=== PATIENT | female | born 1995 | race Caucasian/White ===

== ENCOUNTER 2016-10-14 12:26 | Emergency (ER) | payer SELFPAY ==
[~2016-10-14 12:26] MED LIST: ADVIL200 M2 PO; VISTARIL PO; ZANTAC150 MG PO
== END 2016-10-14 14:09 | disposition home or self-care (01) ==
LOC: SED 12:26
DX: L50.0 Allergic urticaria (principal); Z98.51 Tubal ligation status; Z98.890 Other specified postprocedural states
CPT/HCPCS: 96372; 99283; J2930

== ENCOUNTER 2017-01-04 19:10 | Emergency (ER) | payer SELFPAY | END 2017-01-04 21:04 | disposition home or self-care (01) | LOC: SED 19:10 | DX: K05.30 Chronic periodontitis, unspecified (principal) | CPT/HCPCS: 82947; 99283 ==

== ENCOUNTER 2017-01-09 15:06 | Emergency (ER) | payer OTHER ==
[2017-01-09] MEDS ORDERED: AUGMENTIN (15:24)
[2017-01-09] MEDS ORDERED: LEVAQUIN (15:24)
== END 2017-01-09 18:27 | disposition home or self-care (01) ==
LOC: SED 15:06
DX: T78.40XA Allergy, unspecified, initial encounter (principal); H92.01 Otalgia, right ear
CPT/HCPCS: 99282

== ENCOUNTER 2017-04-07 15:58 | Emergency (ER) | payer OTHER ==
--- NOTE | ~2017-04-07 | CR72 ---
[facility]. [facility] A Service of [facility] & [facility] RADIOLOGY TEXT RESULTS PATIENT: HAIDER ESCOBAR LOCATION: SED : [birth year] UNIT #: [id number] AGE: [address]: Chhaya Wallace MD SEX: F ORDER DR: [id number] [address] [address] [id number] MR#: [id number] Acc #: [id number] NAME: HAIDER ESCOBAR : 1995 SEX: F STUDY DATE/TIME: 04/07/2017 17:09 UNIT: SED ROOM: STUDY DESCRIPTION: CR Chest Single View Portable Attending Physician: Chhaya Wallace M.D. Ordering Physician: Chhaya Wallace M.D. Primary Care Physician: Primary Care Physician No MEDICAL IMAGING REPORT This report is preliminary unless electronic signature is present. EXAM Portable chest HISTORY Shaking, chest pain, shortness of air. FINDINGS A single AP portable view of the chest shows both lungs to be clear. The heart is normal in size. The mediastinal contour is normal. No significant bone abnormalities are seen. IMPRESSION Normal portable chest. Dictated by... Meek Chester M.D. THIS IS AN ELECTRONICALLY VERIFIED REPORT Meek Chester M.D. at 04/08/2017 7:37 PM ANIVAL/morro TD: 04/08/2017 15:29 JOB #: [id number] MEDICAL IMAGING REPORT Page 1 of 1
--- NOTE | ~2017-04-07 | EKG ---
PATIENT: HAIDER ESCOBAR UNIT #: [id number] Ventricular Rate: 102 BPM Atrial Rate: 102 BPM P-R Interval: 138 ms QRS Duration: 92 ms Q-T Interval: 356 ms QTC Calculation(Bezet): 463 ms P Elliott: 43 degrees Calculated R Elliott: 38 degrees Calculated T Elliott: 20 degrees Diagnosis Line: Sinus tachycardia Diagnosis Line: Otherwise normal ECG Diagnosis Line: When compared with ECG of 12-MAY-2016 10:17, Diagnosis Line: Vent. rate has increased BY 37 BPM Diagnosis Line: Confirmed by OSWALDO RYDER MD ([id number]) on Diagnosis Line: 04/11/2017 11:17:34 AM INTERPRETING MD: BRITNI ROCHA
[~2017-04-07 15:58] MED LIST changes: +AUGMENTIN; +LEVAQUIN
[2017-04-07 16:29] LABS: BASOPHIL# 0.1 X10e3 (0-0.3); BASOPHIL% 0.9 % (0-2.5); EOSINOPHIL# 0.2 X10e3 (0-0.7); EOSINOPHIL% 2.4 % (0.0-7.0); HEMATOCRIT 36.4 % (35.0-45.0); HEMOGLOBIN 12.2 gm/dL (12.0-16.0); LYMPHOCYTE# 2.5 X10e3 (1.0-3.5); LYMPHOCYTE% 28.4 % (17.0-45.0); MEAN CELL VOLUME 83.5 FL (83-96); MEAN CORPUSCULAR HEMOGLOBIN 27.9 PG (28-34); MEAN CORPUSCULAR HGB CONC 33.4 g/dL (30-36); MEAN PLATELET VOLUME 7.6 FL (6.5-11.5); MONOCYTE# 0.7 X10e3 (0-1.0); MONOCYTE% 8.3 % (3.0-12.0); NEUTROPHIL# 5.2 X10e3 (1.5-7.1); PLATELET COUNT 409 X10e3 (140-420); RED BLOOD COUNT 4.36 X10e (3.90-5.30); RED CELL DISTRIBUTION WIDTH 13.4 % (11.0-15.5); WHITE BLOOD COUNT 8.6 X10e3 (4.0-10.5)
[2017-04-07 16:34] LABS: DIFF IND NO
[2017-04-07 16:40] LABS: POC - CKMB 1.2 ng/mL (0.0-7.9); POC - MYOGLOBIN 37.5 ng/mL (0.0-169.0); POC - TROPONIN <0.05 ng/mL (<=0.05)
[2017-04-07 16:47] LABS: ALBUMIN SERUM 4.1 g/dL (3.5-5.0); ALKALINE PHOSPHATASE 71 U/L (32-92); ALT (SGPT) 22 U/L (10-40); AST (SGOT) 22 U/L (10-42); BILIRUBIN,TOTAL 0.2 mg/dL (0.2-2.0); BLOOD UREA NITROGEN 19 mg/dL (9-23); BUN/CREATININE RATIO 23.75; CALCIUM SERUM 8.6 mg/dL (8.4-10.2); CARBON DIOXIDE 24 mmol/L (22-31); CHLORIDE 108 mmol/L (100-111); CREATININE SERUM 0.8 mg/dL (0.6-1.4); GLUCOSE FASTING 113 mg/dL (70-110); MAGNESIUM 1.9 mg/dL (1.6-3.0); POTASSIUM 3.5 mmol/L (3.5-5.1); PROTEIN TOTAL SERUM 7.3 g/dL (6.0-8.3); SODIUM 135 mmol/L (135-145)
[2017-04-07 16:49] LABS: BILIRUBIN, DIRECT <0.1 mg/dL (0.0-0.2); BILIRUBIN,INDIRECT 0.1 mg/dL (0.0-0.9)
[2017-04-07 16:51] LABS: MICRO INDICATED? NO; URINE APPEARANCE CLEAR; URINE BILIRUBIN NEG (NEG); URINE BLOOD NEG (NEG); URINE COLOR YELLOW; URINE GLUCOSE NEG (NORM); URINE KETONE NEG (NEG); URINE LEUKOCYTE ESTERASE NEG (NEG); URINE NITRATE NEG (NEG); URINE PROTEIN NEG (NEG); URINE SOURCE CLEAN CATCH; URINE SPECIFIC GRAVITY 1.025 (1.003-1.035); URINE UROBILINOGEN 0.2 MG/DL (NORM)
[2017-04-07 17:01] LABS: AMPHETAMINE NEG (NEG); BARBITURATES NEG (NEG); BENZODIAZEPINES NEG (NEG); COCAINE NEG (NEG); MARIJUANA NEG (NEG); OPIATES NEG (NEG); TRICYCLIC ANTIDEPRESSANTS NEG (NEG); U METHADONE NEG (NEG)
== END 2017-04-07 17:49 | disposition home or self-care (01) ==
LOC: SED 15:58
PROVIDERS: Student in an Organized Health Care Education/Training Program
DX: F41.9 Anxiety disorder, unspecified (principal); E86.0 Dehydration; R55 Syncope and collapse; Z98.51 Tubal ligation status
CPT/HCPCS: 36415; 71010; 80048; 80076; 80307; 81003; 82553; 83735; 83874; 84443; 84484; 84703; 85025; 93005; 96361; 96374; 99285; J2060